=== PATIENT | male | born 1975 | race Caucasian/White ===

== ENCOUNTER 2021-08-19 20:52 | Inpatient (IN) | payer OTHER, SELFPAY ==
--- NOTE | 2021-08-16 19:35 | NUR ---
RECEIVED PT FROM AM NURSE FOR CONTINUITY OF CARE.PATIENT STABLE,NO DISTRESS NOTED
[~2021-08-19] VITALS: Ht 170.2 cm; Wt 68.5 kg
[2021-08-19 21:05] VITALS: BP 132/42
[2021-08-19] MEDS ORDERED: ACETAMINOPHEN 325 MG TAB PO ONE (21:15)
--- NOTE | 2021-08-19 21:30 | NUR ---
PT AT BEDSIDE
[2021-08-19] MEDS ORDERED: NACL 0.9% 1,000 ML IV ONE (21:55)
--- NOTE | 2021-08-19 22:20 | NUR ---
PT PROVIDED WATER AND ICE CHIPS. PT RECIEVED WELL. NO EMESIS
[2021-08-19] MEDS ORDERED: NACL 0.9% 2,000 ML IV ONE (22:30)
[2021-08-19] MEDS ORDERED: VANCOMYCIN 1,000 MG in DEXTROSE 5% 250 ML IV ONE (22:30)
[2021-08-19] MEDS ORDERED: PIPERACILLIN/TAZOBACTAM 3.375 GM in DEXTROSE 5% 50 ML IV ONE (22:30)
[2021-08-19 22:42] LABS: HEMATOCRIT 28.5 % (36-48); HEMOGLOBIN 9.4 g/dL (12.0-16.0); MEAN CORPUSCULAR HEMOGLOBIN 26 pg (27-31); MEAN CORPUSCULAR HGB CONC 33 g/dL (33-37); MEAN CORPUSCULAR VOLUME 78.3 fL (80-94); PLATELET COUNT (AUTO) 187 K/uL (140-450); RED BLOOD CELL COUNT(AUTO) 3.64 MIL/uL (4.20-6.1); RED CELL DISTRIBUTION WIDTH 15.7 % (11.6-13.7); WHITE BLOOD COUNT (AUTO) 3.9 K/uL (4.8-10.8)
[2021-08-19] MEDS ORDERED: VANCOMYCIN 1,000 MG VIAL ONE (22:43)
[2021-08-19] MEDS ORDERED: PIPERACILLIN/TAZOBACTAM 3.375 GM VIAL IV ONE (22:43)
[2021-08-19 22:57] LABS: ANION GAP 12.1 (8-16); CARBON DIOXIDE 25.3 mmol/L (21-32); CREATININE 1.4 mg/dL (0.6-1.3); POTASSIUM 3.4 mmol/L (3.5-5.1)
--- NOTE | 2021-08-19 23:09 | NUR ---
45 YO IDENTIFIES MALE/ HE/ HIM. PT BIBA FOR HEART PALPITATIONS TODAY AND FEVER X2 DAYS . PT STATES SHE HAD STOMACH SURGERY IN JUN TO REMOVE HALF OF STOMACH R/T STOAMCH CANCER . DENIES DIARRHHEA BUT HAS NAUSEA / VOMITING X2 DAYS.; SKIN IS PINK/WARM/DIAPOHORETIC; AAOX4 WITH EVEN AND STEADY GAIT; LUNGS CLEAR BL; HR TACHYCARDIC; PT STATES FEVER, CP, SOB, PT PUT ON MONITOR AND EKG PERFORMED, TYLENOL GIVEN AT TRIAGE; PT STTES THAT HR HAS AWAYS BEEN FAST AT REST. PATIENT STATES PAIN OF 5/10 AT THIS TIME; PATIENT POSITIONED FOR COMFORT; HOB ELEVATED; BEDRAILS UP X2; BED DOWN. ER MD MADE AWARE OF PT STATUS. PMH: STOMACH CANCER RX: PAST CHEMOTHERAPY; NUTRITIONAL PUMP
[2021-08-19 23:12] LABS: LYMPHOCYTES % (MANUAL) 13 % (20-46); MONOCYTES % (MANUAL) 0 % (5-12)
[2021-08-19 23:15] LABS: ALBUMIN 2.8 g/dL (3.4-5.0); BILIRUBIN,DIRECT 0.1 mg/dL (0.0-0.3); TOTAL BILIRUBIN 0.4 mg/dL (0.0-1.0)
[2021-08-20] VITALS (15 sets, daily range): BP systolic 89–121; BP diastolic 42–72
--- NOTE | 2021-08-20 | NUR ---
pt provided with blanket. pt needs met at this time. will continue to monitor
--- NOTE | 2021-08-20 01:40 | NUR ---
provided pt with table and pillow
[2021-08-20 01:53] LABS: APPEARANCE,URINE CLEAR (CLEAR); BILIRUBIN,URINE NEGATIVE (NEGATIVE); BLOOD, URINE NEGATIVE (NEGATIVE); COLOR,URINE DARK YELLOW (YELLOW); LEUKOCYTE ESTERASE ,URINE NEGATIVE (NEGATIVE); NITRITE, URINE NEGATIVE (NEGATIVE); PH,URINE 5.5 (5.0-9.0); UGLUCOSE NEGATIVE (NEGATIVE)
[2021-08-20 02:09] LABS: RBC,URINE 0-5 /HPF (0-5); WBC,URINE 0-5 /HPF (0-5)
[2021-08-20] MEDS ORDERED: NOREPINEPHRINE 4 MG in DEXTROSE 5% 250 ML IV ONE (02:30)
[2021-08-20] MEDS ORDERED: LEVOFLOXACIN 500 MG/D5W PREMIX 100 ML IV ONE ×2 (02:30→04:46)
--- NOTE | 2021-08-20 02:38 | NUR ---
[facility] CALLED FOR ADMISSION
[2021-08-20] MEDS ORDERED: ACETAMINOPHEN EXTRA STRENGTH 500 MG TAB PO ONE (02:45)
[2021-08-20] MEDS ORDERED: NACL 0.9% 1,000 ML IV SCH ×2 (02:50→04:50)
[2021-08-20] MEDS ORDERED: VANCOMYCIN PER PHARMACY MC PRN ×2 (03:00→04:55)
--- NOTE | 2021-08-20 03:03 | NUR ---
Pt reconnected her personal TPN into her port. Per Dr. Worrell's order, pt instructed to stop TPN at this time to r/o infection. pt acknowledge instruction and Primary nurse, Paige made aware.
--- NOTE | 2021-08-20 03:06 | NUR ---
gave shantal swabs to neto
[2021-08-20] MEDS ORDERED: NOREPINEPHRINE 4 MG/4 ML VIAL IV ONE (03:58)
[2021-08-20] MEDS ORDERED: PIPERACILLIN/TAZOBACTAM 3.375 GM in DEXTROSE 5% 50 ML IV SCH ×2 (05:00)
--- NOTE | 2021-08-20 05:20 | NUR ---
AT BEDSIDE PERFORMING CENTRAL LINE AT BEDSIDE
--- NOTE | 2021-08-20 05:34 | NUR ---
DONE FINISHED CENTRAL LINE. PT TOLERATED WELL. PT AT BEDSIDE. ALL NEEDS MET AT THIS TIME
[2021-08-20] MEDS: PIPERACILLIN/TAZOBACTAM 2.25 GM in DEXTROSE 5% 50 ML IV SCH ×4 (06:00→23:41)
--- NOTE | 2021-08-20 06:11 | NUR ---
Patient will be admitted to care of DR. LINDSEY. Admited to ICU. Will go to room 3 . Belongings list completed. Report to KYLE JACK.
--- NOTE | 2021-08-20 06:30 | NUR ---
PT ARRIVED TO ICU BED 3 TRANSFERRED FROM ED VIA GURNEY. PT IN STABLE CONDITION IN NO ACUTE DISTRESS BREATHING EVEN AND UNLABORED ON RA O2 SAT 99%. AOX4. RIGHT FEMORAL CENTRAL LINE PRESENT, PER ED NURSE, CENTRAL LINE PLACED AT 0530 THIS MORNING, R AC 20 G, AND R HAND 20 G PRESENT. RUNNING LEVOPHED AT 8 MCG/MIN, CURRENT BP 93/70. RIGHT CHEST TPN PORT PRESENT. ALL SAFETY MEASURES IN PLACE, EDUCATED ON HOW TO USE CALL LIGHT. WILL CONTINUE TO MONITOR AND FOLLOW POC.
[2021-08-20] MEDS: NOREPINEPHRINE 4 MG in DEXTROSE 5% 250 ML IV PRN (07:00)
--- NOTE | 2021-08-20 07:04 | NUR ---
PATIENT HAS BEEN SCREENED AND CATEGORIZED HIGH NUTRITION RISK. PATIENT WILL BE SEEN WITHIN 1-2 DAYS OF ADMISSION. 08/20/21-08/21/21 TAMEKA FERRO MS, RDN
--- NOTE | 2021-08-20 07:20 | NUR ---
GAVE REPORT TO DAY SHIFT NURSE, ENDORSED CARE. PT IN NO ACUTE DISTRESS.
--- NOTE | 2021-08-20 07:30 | NUR ---
RECEIVED REPORT FROM COMMERCIAL BANKER. PT CAME IN WITH A CC OF FEVER, SOB, AND PALPITATIONS. ADMITTING DX OF SEPTIC SHOCK. HX OF STOMACH CA, SUBTOTAL GASTRECTOMY, TPN FOR 2 MONTHS. PT AOX4, ABLE TO MAKE NEEDS KNOWN. NO C/O PAIN, NO SOB ON ROOM AIR. LUNG SOUNDS CLEAR. BOWEL AND BLADDER CONTINENT. NPO AT THIS TIME. WITH LEFT FEMORAL CENTRAL LINE RUNNING LEVOPHED 8MCG/MIN AND NS 125ML/HR. WITH PERIPHERAL IV RAC 20G AND RH 20G ON SL. SKIN INTACT. SAFETY PRECAUTIONS IN PLACE. CALL LIGHT WITHIN REACH. PLAN OF CARE DISCUSSED
[2021-08-20] MEDS ORDERED: PIPERACILLIN/TAZOBACTAM 2.25 GM VIAL IV ONE (07:54)
[2021-08-20] MEDS: ENOXAPARIN 40 MG/0.4 ML SYR SUBQ SCH (08:11)
--- NOTE | 2021-08-20 08:30 | NUR ---
DUE ANTIBIOTICS GIVEN. PT REFUSED LOVENOX, PT AWARE OF RISKS AND BENEFITS
[2021-08-20] MEDS ORDERED: VANCOMYCIN 500 MG in DEXTROSE 5% 100 ML IV SCH (09:00)
--- NOTE | 2021-08-20 09:56 | NUR ---
(08/20/21) RD INITIAL ASSESSMENT COMPLETED PLEASE REFER TO NUTRITION ASSESSMENT UNDER CARE ACTIVITY FOR ESTIMATED NUTRITIONAL NEEDS. RD RECOMMENDATIONS: 1. CONTINUE NPO MEDICALLY APPROPRIATE 2. CONSIDER INITIATING REGULAR DIET ONCE PT IS MEDICALLY APPROPRIATE TO START ORAL DIET 3. IF PT IS TO START TPN, CONSIDER TPN D25%, AA5% TO RUN AT 65 ML/HR X 24 HRS. THIS WILL PROVIDE 1560 ML TOTAL VOLUME, 1638 KCAL, AND 78 GM PROTEIN TO MEET 77% EST KCAL NEEDS AND 100% LOWER-END PROTEIN NEEDS. GIR = 3.81 GM CHO/KG/MIN. 4. RD WILL F/U 2-3 DAYS; HIGH RISK. TAMEKA FERRO, MS, RDN
[2021-08-20 10:15] LABS: ANION GAP 12.2 (8-16); CARBON DIOXIDE 24.6 mmol/L (21-32); CREATININE 1.1 mg/dL (0.6-1.3); POTASSIUM 4.8 mmol/L (3.5-5.1)
[2021-08-20] MEDS ORDERED: DEXT 5% / NACL 0.9% 500 ML IV SCH (10:40)
[2021-08-20] MEDS: DEXT 5% /NACL 0.9% 1,000 ML IV SCH ×2 (11:37→23:41)
--- NOTE | 2021-08-20 11:40 | NUR ---
PT RESTING IN BED, NO APPARENT DISTRESS. SEEN AND EXAMINED BY DR FERGUSON
--- NOTE | 2021-08-20 14:00 | NUR ---
PT RESTING IN BED, FAMILY AT BEDSIDE
--- NOTE | 2021-08-20 16:30 | NUR ---
SEEN AND EXAMINED BY DR WAGGONER, NO NEW ORDERS
--- NOTE | 2021-08-20 16:48 | NUR ---
FOLLOWED UP WITH DR PUGH REGARDING SURGICAL CONSULT. DR PUGH AWARE OF CONSULT
--- NOTE | 2021-08-20 18:00 | NUR ---
PT RESTING IN BED WITH FAMILY AT BEDSIDE
--- NOTE | 2021-08-20 19:15 | NUR ---
ASSUMED CARE OF PT.INITIAL ASSESSMENT COMPLETED.PT AWAKE ALERT AND ORIENTED X4.SR NOTED ON MONITOR.ON ROOM AIR.DENIES SOB.PT MAINTAINED ON NPO.W/MEDIPORT TO RT CHEST INTACT.CLAMPED.W/TLC TO RT FEMORAL INTACT,GOOD BLOOD RETURN TO ALL 3 PORTS INFUSING LEVOPHED 4MG IN 250ML D5W AT 1 MCG/MIN AND ORDERED IVF D5NS AT 100ML/HR.PT MAINTAINED ON NPO AT THIS TIME.PT ABLE TO VOID FREELY.MOVES ALL EXTREMITIES, ABLE TO STAND/AMBULATE W/STEADY GAIT.DENIES PAIN AT THIS TIME.SKIN INTACT.CALL LIGHT WITHIN REACH.FALL PRECAUTION IN PLACE.BED IN LOWEST POSITION
[2021-08-20] MEDS: FAMOTIDINE 20 MG/2 ML VIAL IV SCH (20:14)
--- NOTE | 2021-08-20 20:15 | NUR ---
PT AWAKE; TRIED TO DC LEVOPHED BUT BP WENT DOWN TO 85/45.WILL CONTINUE TO CLOSELY MONITOR PT
[2021-08-20] MEDS ORDERED: VANCOMYCIN 750 MG in DEXTROSE 5% 250 ML IV SCH (21:00)
--- NOTE | 2021-08-20 21:00 | NUR ---
ALL DUE MEDS ADMINISTERED.DENIES PAIN.SELF TURN.
--- NOTE | 2021-08-20 23:10 | NUR ---
PT UP TO COMMODE.NO BM NOTED AT THIS TIME.VOIDS FREELY.
[2021-08-21] VITALS (24 sets, daily range): BP systolic 95–117; BP diastolic 54–76
--- NOTE | 2021-08-21 00:59 | NUR ---
PT ASLEEP;NOT IN ANY DISTRESS.NO S/SX OF PAIN NOTED.
--- NOTE | 2021-08-21 02:30 | NUR ---
PT APPEARS ASLEEP;NO SOB NOTED.NOT IN ANY DISTRESS.STILL ON LEVOPHED DRIP PER PROTOCOL
[2021-08-21] MEDS ORDERED: NOREPINEPHRINE 4 MG/4 ML VIAL IV ONE (02:59)
[2021-08-21] MEDS: NOREPINEPHRINE 4 MG in DEXTROSE 5% 250 ML IV PRN ×2 (03:13→03:49)
--- NOTE | 2021-08-21 04:00 | NUR ---
PT AWAKE; OFFERED MORNING CARE, PT REFUSED.ORAL CARE DONE DENIES PAIN
[2021-08-21 04:57] LABS: ALBUMIN 2.3 g/dL (3.4-5.0); ANION GAP 11.8 (8-16); CARBON DIOXIDE 23.9 mmol/L (21-32); CREATININE 0.9 mg/dL (0.6-1.3); POTASSIUM 3.7 mmol/L (3.5-5.1); TOTAL BILIRUBIN 0.3 mg/dL (0.0-1.0)
[2021-08-21] MEDS: PIPERACILLIN/TAZOBACTAM 2.25 GM in DEXTROSE 5% 50 ML IV SCH ×3 (05:37→17:35)
[2021-08-21 05:54] LABS: BASOPHILS % (AUTO) 0.5 % (0.0-2.0); EOSINOPHILS % (AUTO) 0.1 % (0.0-4.0); HEMOGLOBIN 8.3 g/dL (12.0-16.0); LYMPHOCYTES # (AUTO) 1.5 K/uL (2.5-16.5); LYMPHOCYTES % (AUTO) 22.5 % (20.5-51.1); MEAN CORPUSCULAR HEMOGLOBIN 26 pg (27-31); MEAN CORPUSCULAR HGB CONC 33 g/dL (33-37); MEAN CORPUSCULAR VOLUME 77.9 fL (80-94); MONOCYTES # (AUTO) 0.5 K/uL (0.8-1.0); MONOCYTES % (AUTO) 7.4 % (1.7-9.3); NEUTROPHILS # (AUTO) 4.7 K/uL (1.8-7.7); NEUTROPHILS % (AUTO) 69.5 % (42.2-75.2); PLATELET COUNT (AUTO) 149 K/uL (140-450); RED BLOOD CELL COUNT(AUTO) 3.21 MIL/uL (4.20-6.1); RED CELL DISTRIBUTION WIDTH 15.9 % (11.6-13.7); WHITE BLOOD COUNT (AUTO) 6.8 K/uL (4.8-10.8)
--- NOTE | 2021-08-21 07:30 | NUR ---
RECEIVED REPORT FROM STIFF LEG DERRICK OPERATOR. PT AOX4, ABLE TO MAKE NEEDS KNOWN. NO C/O PAIN, NO SOB ON ROOM AIR. LUNG SOUNDS CLEAR. BOWEL AND BLADDER CONTINENT. NPO AT THIS TIME. WITH LEFT FEMORAL CENTRAL LINE RUNNING LEVOPHED 2MCG/MIN AND D5NS 100ML/HR. SKIN INTACT. SAFETY PRECAUTIONS IN PLACE. CALL LIGHT WITHIN REACH. PLAN OF CARE DISCUSSED
[2021-08-21] MEDS: DEXT 5% /NACL 0.9% 1,000 ML IV SCH ×2 (07:47→16:34)
--- NOTE | 2021-08-21 09:30 | NUR ---
DUE MEDS GIVEN, TOLERATED WELL
[2021-08-21] MEDS: VANCOMYCIN 1,000 MG in DEXTROSE 5% 250 ML IV SCH ×2 (09:31→20:38)
[2021-08-21] MEDS: FAMOTIDINE 20 MG/2 ML VIAL IV SCH ×2 (09:31→20:46)
[2021-08-21] MEDS: ENOXAPARIN 40 MG/0.4 ML SYR SUBQ SCH (09:32)
[2021-08-21] MEDS ORDERED: POTASSIUM CHLORIDE 10 MEQ TABER PO SCH (09:35)
[2021-08-21] MEDS ORDERED: MAG SULF 2000 MG/WATER PREMIX 50 ML IV SCH (09:35)
--- NOTE | 2021-08-21 10:30 | NUR ---
SBP>100, MAP>65. LEVOPHED TITRATED OFF PER PARAMETERS
--- NOTE | 2021-08-21 11:50 | NUR ---
PER DR FERGUSON, MAY DOWNGRADE TO TELE AFTER 12H OFF LEVOPHED
--- NOTE | 2021-08-21 14:20 | NUR ---
PT RESTING IN BED, NO APPARENT DISTRESS
--- NOTE | 2021-08-21 17:38 | NUR ---
PT AWAKE, FAMILY AT BEDSIDE, NEEDS MET AT THIS TIME
--- NOTE | 2021-08-21 19:30 | NUR ---
RECEIVED REPORT FROM SEFERINO LEMUS AT BEDSIDE FOR CONTINUITY CARE. PT SITTING UP AT THE EDGE OF BED SHE IS ON ROOM AIR AND IS AWAKE AND AOX4. PT "HE" IS AWAKE AND ALERT X4 AND IS ON ROOM AIR. PT HAS MEDIPORT ON THE RIGHT CHEST. HE ALSO HAS A RIGHT FEMORAL TRIPLE LUMEN RUNNING D5N/S AT 100%. HE HAS A URINAL AND BEDSIDE COMMODE AT BEDSIDE. V/S FOLLOWS; P 94 R 15 B/P 101/69 02 100%. PT HAS NO C/O AT THIS TIME. ALL UNIVERSAL FALLS PRECAUTIONS IN PLACE.
--- NOTE | 2021-08-21 21:30 | NUR ---
LAB DRAW AT BEDSIDE FOR VANCOMYCIN TROUGH, LAST TROUGH WAS 8. VANCOMYCIN HUNG AND RUNNING AT 165 ORDERED. PT ALSO GIVEN IVP PEPCID VIA CENTRAL FEMORAL LINE. EDUCATION REGARDING MEDICATION PROVIDED AT BEDSIDE, INCLUDING MEDICATION SIDE EFFECTS, PT VERBALIZED UNDERSTANDING. PT WAS ALSO PROVIDED WITH CLEAN LINENS AND WAS ABLE TO PREFORM ORAL CARE INDEPENDENTLY. HE HAS NO C/O OF PAIN OR SOB. TEMP 98.1. B/P RETAKEN 99/65. WILL CONTINUE TO MONITOR B/P. ALL UNIVERSAL FALLS PRECAUTIONS IN PLACE.
[2021-08-22] VITALS (15 sets, daily range): BP systolic 88–119; BP diastolic 45–73
[2021-08-22] MEDS: PIPERACILLIN/TAZOBACTAM 2.25 GM in DEXTROSE 5% 50 ML IV SCH ×5 (00:22→23:25)
--- NOTE | 2021-08-22 00:22 | NUR ---
HUNG PT ZOSYN RUNNING AT 100MLS/HR ORDERED. PT SAID HE WAS HUNGRY AND WAS GIVEN REQUESTED SANDWICH. URINAL DUMPED IT WAS 750 OF LIGHT URINE. ALL UNIVERSAL FALLS PRECAUTIONS IN PLACE.
[2021-08-22] MEDS: DEXT 5% /NACL 0.9% 1,000 ML IV SCH ×2 (02:00→13:10)
--- NOTE | 2021-08-22 02:30 | NUR ---
NEW BAG OF D5N/S HUNG AND RUNNING ORDERED. PT SITTING UP IN BED AWAKE AND WATCHING TV. NO C/O VOICED. ALL UNIVERSAL FALLS PRECAUTIONS IN PLACE.
--- NOTE | 2021-08-22 05:00 | NUR ---
LAB DRAWS AT BEDSIDE, PT HAS NO C/O VOICED. D5NS RUNNING AT 100MLS/HR ORDERED.
[2021-08-22 05:27] LABS: BASOPHILS % (AUTO) 0.5 % (0.0-2.0); EOSINOPHILS # (AUTO) 0.1 K/uL (0-0.4); EOSINOPHILS % (AUTO) 1.2 % (0.0-4.0); HEMATOCRIT 24.7 % (36-48); HEMOGLOBIN 8.2 g/dL (12.0-16.0); LYMPHOCYTES # (AUTO) 1.5 K/uL (2.5-16.5); LYMPHOCYTES % (AUTO) 34.9 % (20.5-51.1); MEAN CORPUSCULAR HEMOGLOBIN 26 pg (27-31); MEAN CORPUSCULAR HGB CONC 33 g/dL (33-37); MEAN CORPUSCULAR VOLUME 77.6 fL (80-94); MONOCYTES # (AUTO) 0.4 K/uL (0.8-1.0); MONOCYTES % (AUTO) 10.2 % (1.7-9.3); NEUTROPHILS # (AUTO) 2.2 K/uL (1.8-7.7); NEUTROPHILS % (AUTO) 53.2 % (42.2-75.2); PLATELET COUNT (AUTO) 154 K/uL (140-450); RED BLOOD CELL COUNT(AUTO) 3.19 MIL/uL (4.20-6.1); RED CELL DISTRIBUTION WIDTH 15.8 % (11.6-13.7); WHITE BLOOD COUNT (AUTO) 4.2 K/uL (4.8-10.8)
[2021-08-22 05:45] LABS: ANION GAP 9.7 (8-16); CARBON DIOXIDE 24.9 mmol/L (21-32); CREATININE 0.8 mg/dL (0.6-1.3); POTASSIUM 3.6 mmol/L (3.5-5.1)
--- NOTE | 2021-08-22 06:00 | NUR ---
HARRY HUNG AND RUNNING ORDERED. PT HAS NO C/O VOICED SBP OVER 90. ALL ORDERED PRECAUTIONS IN PLACE. ALL UNIVERSAL FALLS PRECAUTIONS IN PLACE.
--- NOTE | 2021-08-22 07:25 | NUR ---
RECEIVED BEDSIDE REPORT FROM REESE HOBSON RN FOR CONTINUITY OF CARE. PT AAOX4, PERRLA. ON ROOM AIR. SR ON THE MONITOR. BOWEL SOUNDS ACTIVE THROUGHOUT. CONTINENT OF BOWWEL AND BLADDER. COMMODE AT BEDSIDE. ACTIVE ROM BUE BLE. SKIN INTACT. RU CHEST MEDIPORT IN PLACE. R FEM TLC CENTRAL LINE, PATENT INTACT, INFUSING D5NS AT 100 ML/HR. STANDARD PRECAUTION IN PLACE. SAFETY PRECAUTIONS MET. CALL LIGHT WITHIN REACH. INITIAL ASSESSMENT COMPLETE, WILL CONTINUE TO CLOSELY MONITOR.
--- NOTE | 2021-08-22 08:30 | NUR ---
FINISHED 50% BREAKFAST. TOLERATED WELL. WILL CONTINUE TO CLOSELY MONITOR.
[2021-08-22] MEDS: ENOXAPARIN 40 MG/0.4 ML SYR SUBQ SCH (08:41)
[2021-08-22] MEDS: FAMOTIDINE 20 MG/2 ML VIAL IV SCH ×2 (08:42→20:20)
[2021-08-22] MEDS: VANCOMYCIN 1,000 MG in DEXTROSE 5% 250 ML IV SCH ×2 (08:43→20:20)
--- NOTE | 2021-08-22 09:00 | NUR ---
DUE MEDS ADMINISTERED PER MD ORDER. NADR. WILL CONTINUE TO MONITOR.
--- NOTE | 2021-08-22 12:27 | NUR ---
DC PLANNIN YRS OLD PATIENT WAS ADMITTED FROM HOME WITH A DX OF SEPSIS AND FEVER . PATIENT HAS A HX OF STOMACH CANCER ,HAD A SUBTOTAL GASTRECTOMY 06/28/21 AT [facility]. CXR SHOWED NO ACUTE CARDIOPULMONARY DISEASE. RAPID COVID TEST NEGATIVE. ADMITTED IN ICU FOR LEVOPHED DRIP ADMINISTERED IVF, IV ABX ZOSYN . CONSULTED WITH PULDAYAMI, ID AND SURGEON FOR MEDIPORT INFECTION. DC PLAN TO DOWN GRADE TO TELE WHEN STABLE CM TO FOLLOW Addendum: 08/24/21 at 1140 by Karyn Olivas RN DC PLANNING: PER DR YOON ORDER TO REMOVE THE MEDIPORT DUE TO BLOOD CULTURE SHOWED GRAM NEGATIVE RODS. TEMP 99.0 B/C 18/4.9 CONTINUE MEROPENEM IV. NOTIFIED KYLE TOSCANO TO F/U WITH DR PUGH TO REMOVE THE MEDI PORT. DC PLAN TO GO HOME WHEN STABLE. CM TO FOLLOW Addendum: 08/26/21 at 1510 by Karyn Olivas RN DC PLANNING: BLOOD CULTURE WITH KLEBSIELLA AND CITROBACTER. AWAITING FOR DR HERNANDEZ AND ID DECISION FOR MEDI PORT REMOVAL. B/C .7 CONSULTED WITH NEPHROLOGY CM TO FOLLOW UP Addendum: 08/30/21 at 1436 by Karyn Olivas RN DC PLANNING: DR ZHAO GUSTAFSON (VULNERABILITY RESEARCHER) AND DR MORGAN DISCUSSED THE BUN AND CREATINE AND OK TO DC PATIENT HOME AND FOLLOW UP WITH VULNERABILITY RESEARCHER WITH IN 2 WEEKS. PATIENT STATED DOESN'T WANT TO REMOVE THE MEDI PORT WILL FOLLOW UP WITH DR HERNANDEZ (ONCOLOGIST) NEXT WEEK AND REFUSED ANY HOME HEALTH FOR MEDI PORT CARE. STABLE FOR DISCHARGE.
--- NOTE | 2021-08-22 13:45 | NUR ---
SEEN AND EXAMINED BY DR GUEVARA. RECEIVED DOWNGRADE ORDERS.
--- NOTE | 2021-08-22 14:12 | NUR ---
08/22/21 RD FOLLOW UP COMPLETED PLEASE REFER TO NUTRITION ASSESSMENT UNDER CARE ACTIVITY FOR ESTIMATED NUTRITIONAL NEEDS. 1. CONTINUE SOFT DIET TOLERATED 2. RECOMMEND ENSURE VANILLA BID PER RD PROTOCOL -WILL PROVIDE 700 KCAL AND 40 GM PROTEIN DAILY 3. RD WILL F/U 3-5 DAYS; MODERATE RISK (DOWNGRADED D/T PT TOLERATING SOLID FOODS WITH NO GI SYMPTOMS) DEDRICK LAU, RD
--- NOTE | 2021-08-22 15:00 | NUR ---
SEEN AND EXAMINED BY DR PUGH. ORDERED TO REMOVE R FEM CENTRAL LINE AND USE MEDIPORT.
--- NOTE | 2021-08-22 15:45 | NUR ---
[facility] PATENT, FLUSHES WELL. CENTRAL LINE REMOVED PER DR PUGH ORDERS.
[2021-08-22] MEDS: ACETAMINOPHEN 325 MG TAB PO PRN ×2 (17:00→21:24)
[2021-08-22] MEDS ORDERED: POTASSIUM CHLORIDE 10 MEQ TABER PO SCH (17:00)
--- NOTE | 2021-08-22 17:00 | NUR ---
PT COMPLAINS OF SHIVERING AND HEADACHE. MEDICATED WITH TYLENOL PER PRN ORDERS. ACCUCHECK 70. GAVE PO ORANGE JUICE. WILL CONTINUE TO CLOSELY MONITOR.
--- NOTE | 2021-08-22 17:30 | NUR ---
PT DENIES PAIN, NO MORE SHIVERING. PT RESTING COMFORTABLY IN THE BED. WILL CONTINUE TO CLOSELY MONITOR.
--- NOTE | 2021-08-22 19:03 | NUR ---
ENDORSED BEDSIDE REPORT TO BLAINE HOBSON RN FOR CONTINUITY OF CARE.
--- NOTE | 2021-08-22 19:30 | NUR ---
ASSUMED CARE OF PT.INITIAL ASSESSMENT COMPLETED.PT AWAKE ALERT AND ORIENTED X4,WATCHING TV.ST NOTED ON MONITOR.ON ROOM AIR.NO SOB NOTED.W/MEDIPORT TO RT CHEST INTACT CLAMPED.PT ON SOFT DIET.DENIES N/V.PT ABLE TO VOID FREELY.MOVES ALL EXTREMITIES, ABLE TO STAND/AMBULATE W/STEADY GAIT.DENIES PAIN AT THIS TIME.SKIN INTACT.CALL LIGHT WITHIN REACH.FALL PRECAUTION IN PLACE.BED IN LOWEST POSITION Addendum: 08/22/21 at 2129 by Gregoria Yadav RN PT WITH CLARK WILLIAMSER AND BLANKETS ON
--- NOTE | 2021-08-22 20:00 | NUR ---
TEMP CHECKED 102.1; CLARK HUGGER AND BLANKETS REMOVED.COOLING MEASURES RENDERED.UNABLE TO GIVE TYLENOL AT THIS TIME NOT DUE YET. PHONE CALL TO DR WAGGONER,INFECTIOUS DS ; AWAITING CALL BACK
--- NOTE | 2021-08-22 20:35 | NUR ---
PHONE CALL FROM DR WAGGONER,MADE AWARE OF PTS TEMP 102, ORDERED BLOOD CULTURE FROM [facility].TO CONTINUE SAME ANTIBIOTICS,VANCOMYCIN AND ZOSYN
--- NOTE | 2021-08-22 21:27 | NUR ---
HR 150'S, PT SHAKING, CHILLS NOTED.TEMP 103.3; CONTINUOUS COOLING MEASURES RENDERED,TYLENOL ADMINISTERED ORDERED.
--- NOTE | 2021-08-22 22:00 | NUR ---
STILL ON CONTINUOUS COOLING MEASURES,TEMP RECHECKED 101.4.DENIES PAIN
[2021-08-23] VITALS (7 sets, daily range): BP systolic 91–108; BP diastolic 45–69
--- NOTE | 2021-08-23 | NUR ---
DUE MEDS GIVEN.TEMP 100.4; CONTINUOUS COOLING MEASURES RENDERED
--- NOTE | 2021-08-23 02:34 | NUR ---
PT ASLEEP,EASILY AROUSABLE, TEMP RECHECKED 98.9.DENIES PAIN
--- NOTE | 2021-08-23 04:00 | NUR ---
TEMP CHECKED 99.5 ORAL.DENIES PAIN.SELF TURNS
[2021-08-23 05:22] LABS: BASOPHILS % (AUTO) 0.1 % (0.0-2.0); HEMATOCRIT 26.3 % (36-48); HEMOGLOBIN 8.6 g/dL (12.0-16.0); LYMPHOCYTES # (AUTO) 0.5 K/uL (2.5-16.5); LYMPHOCYTES % (AUTO) 3.3 % (20.5-51.1); MEAN CORPUSCULAR HEMOGLOBIN 25 pg (27-31); MEAN CORPUSCULAR HGB CONC 33 g/dL (33-37); MONOCYTES # (AUTO) 0.5 K/uL (0.8-1.0); MONOCYTES % (AUTO) 3.2 % (1.7-9.3); NEUTROPHILS # (AUTO) 13.2 K/uL (1.8-7.7); NEUTROPHILS % (AUTO) 93.4 % (42.2-75.2); PLATELET COUNT (AUTO) 177 K/uL (140-450); RED BLOOD CELL COUNT(AUTO) 3.42 MIL/uL (4.20-6.1); RED CELL DISTRIBUTION WIDTH 15.6 % (11.6-13.7); WHITE BLOOD COUNT (AUTO) 14.2 K/uL (4.8-10.8)
[2021-08-23] MEDS: PIPERACILLIN/TAZOBACTAM 2.25 GM in DEXTROSE 5% 50 ML IV SCH ×2 (05:32→11:34)
[2021-08-23 05:45] LABS: MAGNESIUM 1.3 mg/dL (1.8-2.4)
[2021-08-23 06:51] LABS: ANION GAP 12.2 (8-16); CARBON DIOXIDE 23.1 mmol/L (21-32); CREATININE 1.7 mg/dL (0.6-1.3); POTASSIUM 4.3 mmol/L (3.5-5.1)
--- NOTE | 2021-08-23 07:30 | NUR ---
RECEIVED REPORT FROM CHRISTMAS TREE FARMER. PT AOX4, ABLE TO MAKE NEEDS KNOWN. NO C/O PAIN, NO SOB ON ROOM AIR. LUNG SOUNDS CLEAR. BOWEL AND BLADDER CONTINENT. WITH RIGHT UPPER CHEST MEDIPORT RUNNING NS AT TKO. SKIN INTACT. SAFETY PRECAUTIONS IN PLACE. CALL LIGHT WITHIN REACH. PLAN OF CARE DISCUSSED
[2021-08-23] MEDS: FAMOTIDINE 20 MG/2 ML VIAL IV SCH ×2 (08:21→20:40)
[2021-08-23] MEDS: VANCOMYCIN 1,000 MG in DEXTROSE 5% 250 ML IV SCH (08:21)
[2021-08-23] MEDS: ACETAMINOPHEN 325 MG TAB PO PRN (08:22)
[2021-08-23] MEDS: ENOXAPARIN 40 MG/0.4 ML SYR SUBQ SCH (08:22)
--- NOTE | 2021-08-23 08:22 | NUR ---
DUE MEDS GIVEN TOLERATED WELL. TEMP 100.0, TYLENOL GIVEN
--- NOTE | 2021-08-23 09:19 | NUR ---
RECEIVED REPORT FROM INFORMATICS COORDINATOR RN. JENNIFER. NAD NOTED. PT RESTING COMFORTABLY IN BED. VANCO RUNNING THROUGH [facility]. PT AWARE OF POC. DR. PUGH AT BEDSIDE.
[2021-08-23] MEDS ORDERED: MAG SULF 2000 MG/WATER PREMIX 50 ML IV SCH (13:00)
--- NOTE | 2021-08-23 13:38 | NUR ---
PT'S MAGNESIUM LVL 1.3, GIVEN MAG SULFATE VIA IV PER ORDER.
--- NOTE | 2021-08-23 14:14 | NUR ---
PT RECEIVED [facility] CENTRAL LINE DRESSING CHANGE BY GRANITE POLISHER MACHINE. PT TOLERATED. PT RECEIVING MAGNESIUM SULFATE VIA PORT.
--- NOTE | 2021-08-23 14:19 | NUR ---
ID AWARE OF PT'S BC PRELIM RESULTS. PER MD HE WILL REVIEW ORDERS.
--- NOTE | 2021-08-23 16:00 | NUR ---
DC PLANNING PATIENT IS A 45 YEAR OLD INDIVIDUAL ADMITTED ON 08/20/2021 TO [facility]/ED DUE TO INCREASED FEVER, PALPITATIONS, AND HEART RACING THAT STARTED ABOUT COUPLE DAYS AGO, PATIENT HAS HX. OF RECENT SURGERY AT [facility] (GASTRECTOMY) ON June. PATIENT ALSO HAS HX. OF STOMACH CANCER AND IN PROCESS OF CONTINUES TREATMENT. SW MET WITH PATIENT AND SIGNIFICANT OTHER LIT GOMEZ AT BEDSIDE TO DISCUSS AND GATHER PATIENT'S COLLATERAL INFORMATION. PATIENT REPORTED LIVING AT HOME WITH SIGNIFICANT OTHER AND A CHILD. PATIENT STATED HAVING PLENTY OF SUPPORT FROM FAMILY,AND LIT GOMEZ WHO IS HIS EMERGENCY CONTACT AND MEDICAL DECISION MAKER. PATIENT REPORTED NOT HAVING ADVANCE DIRECTIVES AND WAS INTERESTED ON GETTING A.D. INFORMATION PACKET PROVIDED BY [employer] AT THE TIME OF VISIT. PATIENT REPORTED BEEN ACTIVE AND INDEPENDENT AT HOME AND NOT HAVING ANY DME AT HOME. PATIENT STATED NOT HAVING ANY ISSUES WITH GETTING OR TAKING ANY MEDICATIONS FROM [facility] NEAR THEIR HOME. SW EXPLAINED TO PATIENT THE NEED TO FOLLOW UP WITH AN APPOINTMENT WITH PCP WITHIN 5-7 DAYS AFTER DC FROM [facility]. PATIENT AGREED HOWEVER; STATED WANTING TO MAKE HIS APPOINTMENT AND DECLINED FOR SW TO DO AN APPOINTMENT FOR PATIENT. PATIENT STATED "NO I'LL MAKE MY APPOINTMENT" PATIENT STATED THAT SIGNIFICANT OTHER OR MOTHER WILL BE ASSISTING WITH TRANSPORTATION BACK HOME WHEN PATIENT IS READY FOR DISCHARGE FROM [facility]. SW WILL FOLLOW UP WITH PATIENT NEEDED.
--- NOTE | 2021-08-23 19:03 | NUR ---
WILL ENDORSE CARE TO CRYSTAL LAPPER RN.
--- NOTE | 2021-08-23 19:10 | NUR ---
RECEIVED ENDORSEMENT FROM AM NURSE. PATIENT IS RESTING COMFORTABLY IN BED. NO S/S OF RESPIRATORY DISTRESS. RESPIRATION EVEN UNLABORED. SAFETY MEASURES IN PLACE. NO COMPLAINTS OF PAIN. IVF NS INFUSING AT TKO. CALL LIGHT WITHIN REACH. WILL CONTINUE TO MONITOR.
[2021-08-23] MEDS: MEROPENEM 1,000 MG in NACL 0.9% 50 ML IV SCH (20:40)
--- NOTE | 2021-08-23 20:40 | NUR ---
SCHEDULED MEDICATIONS DUE ADMINISTERED.
[2021-08-24] VITALS: BP 105/64
--- NOTE | 2021-08-24 01:30 | NUR ---
ROUNDED PATIENT, PT IS SLEEPING. NO DISTRESS NOTED. CALL LIGHT WITHIN REACH.
[2021-08-24 04:00] VITALS: BP 101/65
[2021-08-24] MEDS: MEROPENEM 1,000 MG in NACL 0.9% 50 ML IV SCH (04:33)
[2021-08-24 05:42] LABS: MAGNESIUM 2.4 mg/dL (1.8-2.4); PHOSPHORUS 3.4 mg/dL (2.5-4.9)
[2021-08-24 05:49] LABS: ANION GAP 13.7 (8-16); POTASSIUM 4.7 mmol/L (3.5-5.1)
[2021-08-24 05:53] LABS: CREATININE 4.9 mg/dL (0.6-1.3)
--- NOTE | 2021-08-24 07:12 | NUR ---
ENDORSED PATIENT TO AM NURSE FOR CONTINUITY OF CARE. PT IS STABLE. NO FEVER.
[2021-08-24 08:00] LABS: BASOPHILS % (AUTO) 0.4 % (0.0-2.0); EOSINOPHILS % (AUTO) 0.5 % (0.0-4.0); HEMATOCRIT 27.6 % (36-52); HEMOGLOBIN 9.1 g/dL (12.0-18.0); LYMPHOCYTES # (AUTO) 1.2 K/uL (2.0-11.5); LYMPHOCYTES % (AUTO) 11.9 % (20.5-51.1); MEAN CORPUSCULAR HEMOGLOBIN 25 pg (27-31); MEAN CORPUSCULAR HGB CONC 33 g/dL (33-37); MONOCYTES # (AUTO) 0.9 K/uL (0.8-1.0); NEUTROPHILS # (AUTO) 8.1 K/uL (1.8-7.7); NEUTROPHILS % (AUTO) 78.2 % (42.2-75.2); PLATELET COUNT (AUTO) 175 K/uL (140-450); RED BLOOD CELL COUNT(AUTO) 3.58 MIL/uL (4.20-6.10); RED CELL DISTRIBUTION WIDTH 16.3 % (11.6-13.7); WHITE BLOOD COUNT (AUTO) 10.4 K/uL (4.8-10.8)
[2021-08-24 08:14] VITALS: BP 108/66
[2021-08-24] MEDS: FAMOTIDINE 20 MG/2 ML VIAL IV SCH (09:13)
[2021-08-24] MEDS: ENOXAPARIN 40 MG/0.4 ML SYR SUBQ SCH (09:13)
--- NOTE | 2021-08-24 09:28 | NUR ---
RECEIVED FROM CHEMICAL RESEARCH WORKER RN, PT IN STABLE CONDITION, VSS, SLEEPING, NAD NOTED. WILL CONTINUE TO MONITOR,
[2021-08-24] MEDS ORDERED: RENAL DOSING PER PHARMACY MC PRN (09:55)
[2021-08-24 12:00] VITALS: BP 104/67
--- NOTE | 2021-08-24 12:11 | NUR ---
PER DR. PUGH, PUT PT NPO FOR POSSIBLE REMOVAL OF PORT A CATH TONIGHT. ORDER PLACED.
[2021-08-24] MEDS ORDERED: FAMOTIDINE 20 MG/2 ML VIAL IV SCH (14:30)
[2021-08-24 16:00] VITALS: BP 105/64
[2021-08-24] MEDS: MEROPENEM 500 MG in NACL 0.9% 50 ML IV SCH (16:53)
--- NOTE | 2021-08-24 17:33 | NUR ---
PER DR. GUEVARA, DC ORDER TO REMOVE PORT A CATH. WANTS ONC DOCTOR TO EVALUATE PT FIRST BEFORE REMOVAL. OH AWARE. PT RESUMED ON PREVIOUS DIET.
--- NOTE | 2021-08-24 19:25 | NUR ---
RECEIVED REPORT FROM AM NURSE. PATIENT IS AAOX4 SITTING ON THE BEDSIDE CHAIR. ON ROOM AIR. NO SOB. BREATHING REGULAR UNLABORED. SAFETY MEASURES IN PLACE. CALL LIGHT WITHIN REACH. WILL CONTINUE TO MONITOR.
[2021-08-24 20:00] VITALS: BP 112/69
[2021-08-25] VITALS: BP 106/65
[2021-08-25 04:00] VITALS: BP 98/54
[2021-08-25] MEDS: MEROPENEM 500 MG in NACL 0.9% 50 ML IV SCH ×2 (04:25→16:07)
--- NOTE | 2021-08-25 04:25 | NUR ---
SCHEDULED IV ABX ADMINISTERED ORDERED.
[2021-08-25 06:05] LABS: BASOPHILS # (AUTO) 0.1 K/uL (0.00-0.22); BASOPHILS % (AUTO) 0.7 % (0.0-2.0); EOSINOPHILS % (AUTO) 0.4 % (0.0-4.0); HEMATOCRIT 26.7 % (36-52); HEMOGLOBIN 8.7 g/dL (12.0-18.0); LYMPHOCYTES # (AUTO) 1.4 K/uL (2.0-11.5); LYMPHOCYTES % (AUTO) 14.8 % (20.5-51.1); MEAN CORPUSCULAR HEMOGLOBIN 25 pg (27-31); MEAN CORPUSCULAR HGB CONC 33 g/dL (33-37); MEAN CORPUSCULAR VOLUME 77.7 fL (80-94); MONOCYTES # (AUTO) 0.9 K/uL (0.8-1.0); MONOCYTES % (AUTO) 8.8 % (1.7-9.3); NEUTROPHILS # (AUTO) 7.4 K/uL (1.8-7.7); NEUTROPHILS % (AUTO) 75.3 % (42.2-75.2); PLATELET COUNT (AUTO) 190 K/uL (140-450); RED BLOOD CELL COUNT(AUTO) 3.43 MIL/uL (4.20-6.10); RED CELL DISTRIBUTION WIDTH 16.1 % (11.6-13.7); WHITE BLOOD COUNT (AUTO) 9.8 K/uL (4.8-10.8)
[2021-08-25 06:09] LABS: MAGNESIUM 2.5 mg/dL (1.8-2.4)
[2021-08-25 06:11] LABS: ANION GAP 13.9 (8-16); CARBON DIOXIDE 24.4 mmol/L (21-32); POTASSIUM 4.3 mmol/L (3.5-5.1)
[2021-08-25 06:16] LABS: CREATININE 7.2 mg/dL (0.6-1.3)
--- NOTE | 2021-08-25 07:20 | NUR ---
ENDORSED PATIENT TO AM NURSE FOR CONTINUITY OF CARE. PT IS STABLE.
--- NOTE | 2021-08-25 07:21 | NUR ---
RECEIVED BEDSIDE REPORT FROM SPRAYER AUTOMATIC SPRAY MACHINE NURSE FOR CONTINUITY OF CARE. PT IS RESTING. BREATHING IS EVEN AND UNLABORED. NO SIGNS OF DISTRESS NOTED. NO PAIN NOTED. FLUIDS ARE TKO. HAS RIGHT UPPER CHEST MEDIPORT TO REMOVE ONCE DR HERNANDEZ SEES PT. PT IS STABLE.
[2021-08-25 08:00] VITALS: BP 106/60
[2021-08-25] MEDS ORDERED: ENOXAPARIN 30 MG/0.3 ML SYR SUBQ SCH (09:00)
[2021-08-25] MEDS: FAMOTIDINE 20 MG/2 ML VIAL IV SCH (09:17)
--- NOTE | 2021-08-25 11:03 | NUR ---
PT STATES HE HAS LOST APPETITE FOR 3 DAYS NOW. PT ASKING IF THEY CAN GIVE MORE IV FLUIDS. PT IS RESTING. BREATHING IS EVEN AND UNLABORED. NO SIGNS OF DISTRESS NOTED. NO PAIN NOTED. FLUIDS ARE TKO. PT ASKING IF THEY CAN GIVE MORE IV FLUIDS. HAS RIGHT UPPER CHEST MEDIPORT TO REMOVE ONCE DR HERNANDEZ SEES PT. PT IS STABLE.
[2021-08-25 12:00] VITALS: BP 105/72
[2021-08-25] MEDS: NACL 0.9% 1,000 ML IV SCH (12:12)
--- NOTE | 2021-08-25 15:58 | NUR ---
DR FERGUSON ORDERED BLOOD CULTURE AND STATED THAT IT IS OKAY TO DE-ACCESS MEDIPORT SINCE PT ALREADY HAS PIV. PT IS RESTING. BREATHING IS EVEN AND UNLABORED. NO SIGNS OF DISTRESS NOTED. NO PAIN NOTED. FLUIDS ARE NOW NS AT 75ML/HR. PT IS STABLE.
[2021-08-25 16:00] VITALS: BP 114/85
--- NOTE | 2021-08-25 18:00 | NUR ---
DR WAGGONER CHANGED THE ABX FROM MEROPENEM TO ROCEPHIN. SAID THAT DR PUGH CAN TAKE THE MEDIPORT OUT SO THAT IT DOES NOT CAUSE SEPSIS. ALSO TO CONSULT RENAL MD SINCE PT IS RAPHAEL. PT IS BREATHING EVEN AND UNLABORED. NO SIGNS OF DISTRESS NOTED. PT IS STABLE.
--- NOTE | 2021-08-25 19:40 | NUR ---
ENDORSED PT TO SEGMENT ASSEMBLER NURSE FOR CONTINUITY OF CARE. POC DISCUSSED.
[2021-08-25 20:00] VITALS: BP 107/74
--- NOTE | 2021-08-25 20:00 | NUR ---
VITAL SIGNS ARE WITHIN NORMAL LIMITS. DENIES ANY S/SX OF DISTRESS. PT OBSERVED SITTING IN BED TALKING WITH FAMILY MEMBER. ALL NEEDS MET. CALL LIGHT IS WITHIN REACH.
--- NOTE | 2021-08-25 22:39 | NUR ---
ROUNDS MADE. PT RESTING IN BED WATCHING TV. DENIES ANY DISTRESS. CALL LIGHT IS WITHIN REACH. WILL CONTINUE TO MONITOR.
[2021-08-25] MEDS: ACETAMINOPHEN 325 MG TAB PO PRN (23:33)
--- NOTE | 2021-08-25 23:33 | NUR ---
VSS. ADMIN PRN TYLENOL FOR HEADACHE. ALL NEEDS MET. CALL LIGHT IS WITHIN REACH.
[2021-08-26] VITALS: BP 115/70
[2021-08-26 04:00] VITALS: BP 125/77
[2021-08-26] MEDS: NACL 0.9% 1,000 ML IV SCH (04:15)
--- NOTE | 2021-08-26 04:29 | NUR ---
VITAL SIGNS ARE WITHIN NORMAL LIMITS. ALL SAFETY MEASURES. CALL LIGHT IS WITHIN REACH
[2021-08-26 05:53] LABS: BASOPHILS % (AUTO) 0.4 % (0.0-2.0); EOSINOPHILS # (AUTO) 0.1 K/uL (0-0.4); HEMATOCRIT 26.2 % (36-52); HEMOGLOBIN 8.7 g/dL (12.0-18.0); LYMPHOCYTES # (AUTO) 1.8 K/uL (2.0-11.5); MEAN CORPUSCULAR HEMOGLOBIN 25 pg (27-31); MEAN CORPUSCULAR HGB CONC 33 g/dL (33-37); MEAN CORPUSCULAR VOLUME 76.4 fL (80-94); MONOCYTES # (AUTO) 0.9 K/uL (0.8-1.0); MONOCYTES % (AUTO) 11.4 % (1.7-9.3); NEUTROPHILS # (AUTO) 4.8 K/uL (1.8-7.7); NEUTROPHILS % (AUTO) 63.2 % (42.2-75.2); PLATELET COUNT (AUTO) 228 K/uL (140-450); RED BLOOD CELL COUNT(AUTO) 3.43 MIL/uL (4.20-6.10); RED CELL DISTRIBUTION WIDTH 16.5 % (11.6-13.7); WHITE BLOOD COUNT (AUTO) 7.7 K/uL (4.8-10.8)
[2021-08-26 06:04] LABS: MAGNESIUM 2.4 mg/dL (1.8-2.4); PHOSPHORUS 4.3 mg/dL (2.5-4.9)
[2021-08-26 06:44] LABS: ANION GAP 14.2 (8-16); CARBON DIOXIDE 23.2 mmol/L (21-32); POTASSIUM 4.4 mmol/L (3.5-5.1)
[2021-08-26 06:47] LABS: CREATININE 8.7 mg/dL (0.6-1.3)
--- NOTE | 2021-08-26 06:52 | NUR ---
PAGED DR MÉNDEZ FOR CRITICAL LAB CREA 8.7. WAITING FOR PAGE BACK.
--- NOTE | 2021-08-26 07:30 | NUR ---
GAVE BEDSIDE REPORT TO DAY RN. PT ENDORSED IN STABLE CONDITION.
--- NOTE | 2021-08-26 07:31 | NUR ---
RECEIVED PATIENT FROM STAFF MECHANICAL ENGINEER NURSE FOR CONTINUITY OF CARE. PATIENT IS A/A/O X4. RESPIRATORY EVEN AND UNLABORED, ON ROOM AIR, NO SIGN OF DISTRESS NOTED. SKIN WARM, DRY, NON DIAPHORETIC. IV ON LEFT HAND 22G, INTACT AND PATENT, IS INFUSING FLUID ORDER. MEDIPORT NOTED ON RIGHT UPPER CHEST. PATIENT DENIES ANY PAIN OR DISCOMFORT. ABLE TO MAKE NEED KNOWN. CALL LIGHT WITHIN REACH. WILL CONTINUE TO MONITOR.
[2021-08-26 08:00] VITALS: BP 102/67
[2021-08-26] MEDS: FAMOTIDINE 20 MG/2 ML VIAL IV SCH (09:07)
--- NOTE | 2021-08-26 09:07 | NUR ---
SCHEDULE MEDICATION GIVEN WITH EDUCATION, PATIENT VERBALIZED UNDERSTANDING. PATIENT TOLERATED WELL. NO SIGN OF DISTRESS NOTED. CALL LIGHT WITHIN REACH. WILL CONTINUE TO MONITOR.
--- NOTE | 2021-08-26 11:20 | NUR ---
PATIENT IS RESTING IN BED, NO SIGN OF DISTRESS NOTED. CALL LIGHT WITHIN REACH. WILL CONTINUE TO MONITOR.
[2021-08-26 12:00] VITALS: BP 115/60
--- NOTE | 2021-08-26 13:50 | NUR ---
INSERT NOYOLA CATHETER. PATIENT TOLERATED. CLEAR YELLOW URINE RETURN. URINE COLLECTED. CALL LIGHT WITHIN REACH. WILL CONTINUE TO MONITOR.
--- NOTE | 2021-08-26 15:45 | NUR ---
PATIENT IS RESTING IN BED, NO SIGN OF DISTRESS NOTED. AROUSABLE TO VOICE. CALL LIGHT WITHIN REACH. WILL CONTINUE TO MONITOR.
[2021-08-26 16:00] VITALS: BP 111/66
--- NOTE | 2021-08-26 16:37 | NUR ---
08/26/21 RD FOLLOW UP COMPLETED PLEASE REFER TO NUTRITION ASSESSMENT UNDER CARE ACTIVITY FOR ESTIMATED NUTRITIONAL NEEDS. 1. CONTINUE SOFT DIET TOLERATED 2. RECOMMEND ENSURE CLEAR TID PER RD PROTOCOL -WILL PROVIDE [address] AND [address] PR[address] DA[address]. [address] WILL F/U 2-3 DAYS; HIGH RISK DEDRICK [address] RD
[2021-08-26] MEDS: ONDANSETRON 4 MG/2 ML VIAL IVP PRN (18:05)
--- NOTE | 2021-08-26 18:05 | NUR ---
PATIENT COMPLAINS OF NAUSEA, PRN ZOFRAN GIVEN WITH EDUCATION. PATIENT VERBALIZED UNDERSTANDING. PATIENT TOLERATED WELL. NO SIGN OF DISTRESS NOTED. CALL LIGHT WITHIN REACH. WILL CONTINUE TO MONITOR.
--- NOTE | 2021-08-26 19:28 | NUR ---
ENDORSED PATIENT TO [employer] SUPERVISOR NURSE FOR CONTINUITY OF CARE. PATIENT IS STABLE.
[2021-08-26 19:38] LABS: APPEARANCE,URINE CLEAR (CLEAR); BILIRUBIN,URINE NEGATIVE (NEGATIVE); BLOOD, URINE NEGATIVE (NEGATIVE); COLOR,URINE YELLOW (YELLOW); LEUKOCYTE ESTERASE ,URINE NEGATIVE (NEGATIVE); NITRITE, URINE NEGATIVE (NEGATIVE); UGLUCOSE NEGATIVE (NEGATIVE)
[2021-08-26 19:39] LABS: EOSINOPHIL,URINE NONE SEEN
[2021-08-26 20:00] VITALS: BP 115/60
--- NOTE | 2021-08-26 21:00 | NUR ---
PATIENT ASKING FOR MEDIPORT TO BE REMOVED, SAID NO AND SAID HES COMING TOMORROW TO TALK TO THE PT
[2021-08-27] VITALS: BP 109/76
--- NOTE | 2021-08-27 | NUR ---
PT SLEEPING ,ALL SAFETY MEASURES IN PLACE,BREATHING EVEN AND UNLABORED,NO DISTRESS NOTED
--- NOTE | 2021-08-27 03:00 | NUR ---
PATIENT ASLEEP ,BREATHING EVEN AND UNLABORED,CALL LIGHTS WITHIN REACH
[2021-08-27 04:00] VITALS: BP 118/68
--- NOTE | 2021-08-27 06:00 | NUR ---
PATIENT AWAKE ,VS STABLE ,URINE OUTPUT 1000CC,CLEAR,NO NDISTRESS NOTEDS
[2021-08-27 06:40] LABS: BASOPHILS % (AUTO) 0.6 % (0.0-2.0); EOSINOPHILS # (AUTO) 0.1 K/uL (0-0.4); EOSINOPHILS % (AUTO) 1.2 % (0.0-4.0); HEMATOCRIT 25.3 % (36-52); HEMOGLOBIN 8.2 g/dL (12.0-18.0); LYMPHOCYTES # (AUTO) 1.8 K/uL (2.0-11.5); MEAN CORPUSCULAR HEMOGLOBIN 25 pg (27-31); MEAN CORPUSCULAR HGB CONC 33 g/dL (33-37); MEAN CORPUSCULAR VOLUME 77.3 fL (80-94); MONOCYTES # (AUTO) 0.9 K/uL (0.8-1.0); MONOCYTES % (AUTO) 11.4 % (1.7-9.3); NEUTROPHILS # (AUTO) 4.7 K/uL (1.8-7.7); NEUTROPHILS % (AUTO) 62.8 % (42.2-75.2); PLATELET COUNT (AUTO) 244 K/uL (140-450); RED BLOOD CELL COUNT(AUTO) 3.27 MIL/uL (4.20-6.10); RED CELL DISTRIBUTION WIDTH 16.7 % (11.6-13.7); WHITE BLOOD COUNT (AUTO) 7.5 K/uL (4.8-10.8)
[2021-08-27 06:50] LABS: MAGNESIUM 2.4 mg/dL (1.8-2.4)
[2021-08-27 08:00] VITALS: BP 107/58
[2021-08-27] MEDS: FAMOTIDINE 20 MG/2 ML VIAL IV SCH (08:17)
[2021-08-27 12:00] VITALS: BP 118/71
--- NOTE | 2021-08-27 13:00 | NUR ---
REMOVED ORTEGA NEEDLE FROM RIGHT UPPER CHEST MEDIPORT PER PHYSICIAN ORDER. SITE COVERED WITH GAUZE AND TAPE. PT REFUSED TRANSPARENT DRESSING D/T AREA SENSITIVE AND RED. PT TOLERATED PROCEDURE WELL. NEEDLE INTACT.
[2021-08-27 16:00] VITALS: BP 115/78
[2021-08-27] MEDS: ONDANSETRON 4 MG/2 ML VIAL IVP PRN (19:50)
--- NOTE | 2021-08-27 19:50 | NUR ---
PATIENT COMPLAINED OF NAUSEA, ZOFRAN IVP PRN ADMINISTERED.
[2021-08-27 20:00] VITALS: BP 131/82
[2021-08-28] VITALS: BP 116/67
--- NOTE | 2021-08-28 00:35 | NUR ---
PATIENT IS SLEEPING. NO ACUTE DISTRESS. CALL LIGHT WITHIN REACH. SAFETY MEASURES IN PLACE.
[2021-08-28 04:00] VITALS: BP 111/60
[2021-08-28 06:06] LABS: BASOPHILS # (AUTO) 0.1 K/uL (0.00-0.22); BASOPHILS % (AUTO) 0.8 % (0.0-2.0); EOSINOPHILS # (AUTO) 0.1 K/uL (0-0.4); EOSINOPHILS % (AUTO) 0.8 % (0.0-4.0); HEMATOCRIT 25.3 % (36-52); HEMOGLOBIN 8.3 g/dL (12.0-18.0); LYMPHOCYTES # (AUTO) 1.7 K/uL (2.0-11.5); LYMPHOCYTES % (AUTO) 19.3 % (20.5-51.1); MEAN CORPUSCULAR HEMOGLOBIN 25 pg (27-31); MEAN CORPUSCULAR HGB CONC 33 g/dL (33-37); MEAN CORPUSCULAR VOLUME 76.9 fL (80-94); MONOCYTES # (AUTO) 0.9 K/uL (0.8-1.0); MONOCYTES % (AUTO) 10.7 % (1.7-9.3); NEUTROPHILS # (AUTO) 5.9 K/uL (1.8-7.7); NEUTROPHILS % (AUTO) 68.4 % (42.2-75.2); PLATELET COUNT (AUTO) 276 K/uL (140-450); RED BLOOD CELL COUNT(AUTO) 3.29 MIL/uL (4.20-6.10); RED CELL DISTRIBUTION WIDTH 16.3 % (11.6-13.7); WHITE BLOOD COUNT (AUTO) 8.6 K/uL (4.8-10.8)
[2021-08-28 06:25] LABS: MAGNESIUM 2.3 mg/dL (1.8-2.4); PHOSPHORUS 5.5 mg/dL (2.5-4.9)
--- NOTE | 2021-08-28 07:30 | NUR ---
RECEIVED PATIENT FROM [employer]TER DISPATCHER NURSE FOR CONTINUITY OF CARE. PATIENT IS A/A/O X4, ABLE TO MAKE NEED KNOWN. RESPIRATORY EVEN AND UNLABORED, ON ROOM AIR, NO SIGN OF DISTRESS NOTED. SKIN WARM, DRY, NON DIAPHORETIC. IV ON LEFT HAND 22G, INTACT AND PATENT. INFUSING FLUIDS ORDER. MEDIPORT NOTED ON RIGHT UPPER CHEST. PATIENT DENIES ANY PAIN OR DISCOMFORT. PLAN OF CARE DISCUSSED. CALL LIGHT WITHIN REACH. WILL CONTINUE TO MONITOR.
--- NOTE | 2021-08-28 07:33 | NUR ---
ENDORSED PATIENT GIVEN TO AM RN FOR CONTINUITY OF CARE. PATIENT IN STABLE CONDITION.
[2021-08-28 08:00] VITALS: BP 117/69
[2021-08-28] MEDS: FAMOTIDINE 20 MG/2 ML VIAL IV SCH (08:16)
--- NOTE | 2021-08-28 09:00 | NUR ---
ALL SCHEDULED MEDS GIVEN. PT IS STABLE. NO DISTRESS NOTED. WILL CONTINUE TO MONITOR.
[2021-08-28 09:40] LABS: ALBUMIN 2.4 g/dL (3.4-5.0); ANION GAP 13.7 (8-16); CARBON DIOXIDE 22.9 mmol/L (21-32); POTASSIUM 4.6 mmol/L (3.5-5.1); TOTAL BILIRUBIN 0.3 mg/dL (0.0-1.0)
[2021-08-28 09:46] LABS: CREATININE 9.6 mg/dL (0.6-1.3)
--- NOTE | 2021-08-28 11:30 | NUR ---
CHECKED ON PATIENT. PT IS STABLE. NO DISTRESS NOTED. WILL CONTINUE TO MONITOR.
[2021-08-28 12:00] VITALS: BP 109/67
--- NOTE | 2021-08-28 14:45 | NUR ---
CHECKED ON PATIENT. PT IS STABLE. NO DISTRESS NOTED. WILL CONTINUE TO MONITOR.
[2021-08-28 16:00] VITALS: BP 119/74
--- NOTE | 2021-08-28 17:40 | NUR ---
OBTAINED BLOOD CX FROM [facility].
--- NOTE | 2021-08-28 19:15 | NUR ---
ENDORSED TO ENVIRONMENTAL REMEDIATION CONSULTANT NURSE FOR CONTINUITY OF CARE. PT IS STABLE.
--- NOTE | 2021-08-28 19:20 | NUR ---
RECOLLECTED BLOOD CX Addendum: 08/28/21 at 1944 by Slade Fisher RN RN LAB NEEDED TWO SETS OF BLOOD CULTURES
[2021-08-28 20:00] VITALS: BP 111/65
[2021-08-29] VITALS: BP 110/70
--- NOTE | 2021-08-29 | NUR ---
ROUNDS , NO S/SX OF ACUTE DISTRESS NOTED AT THIS TIME , CALL LIGHT WITHIN REACH .
[2021-08-29 04:00] VITALS: BP 111/69
--- NOTE | 2021-08-29 04:00 | NUR ---
ROUNDS , NO COMPLAIN MADE . CALL LIGHT WITHIN REACH .
[2021-08-29 05:22] LABS: BASOPHILS % (AUTO) 0.3 % (0.0-2.0); EOSINOPHILS # (AUTO) 0.1 K/uL (0-0.4); EOSINOPHILS % (AUTO) 0.5 % (0.0-4.0); HEMATOCRIT 24.5 % (36-52); HEMOGLOBIN 7.9 g/dL (12.0-18.0); LYMPHOCYTES # (AUTO) 1.2 K/uL (2.0-11.5); LYMPHOCYTES % (AUTO) 13.4 % (20.5-51.1); MEAN CORPUSCULAR HEMOGLOBIN 25 pg (27-31); MEAN CORPUSCULAR HGB CONC 33 g/dL (33-37); MEAN CORPUSCULAR VOLUME 76.7 fL (80-94); MONOCYTES # (AUTO) 0.7 K/uL (0.8-1.0); MONOCYTES % (AUTO) 7.4 % (1.7-9.3); NEUTROPHILS # (AUTO) 7.3 K/uL (1.8-7.7); NEUTROPHILS % (AUTO) 78.4 % (42.2-75.2); PLATELET COUNT (AUTO) 295 K/uL (140-450); RED BLOOD CELL COUNT(AUTO) 3.19 MIL/uL (4.20-6.10); RED CELL DISTRIBUTION WIDTH 16.6 % (11.6-13.7); WHITE BLOOD COUNT (AUTO) 9.3 K/uL (4.8-10.8)
[2021-08-29 05:38] LABS: MAGNESIUM 2.1 mg/dL (1.8-2.4); PHOSPHORUS 5.5 mg/dL (2.5-4.9)
[2021-08-29 05:39] LABS: ANION GAP 15.5 (8-16); CARBON DIOXIDE 21.9 mmol/L (21-32); POTASSIUM 4.4 mmol/L (3.5-5.1)
--- NOTE | 2021-08-29 06:00 | NUR ---
CREA 8.6 TRENDING DOWN - RELAYED TO DR. JACOBO - WAITING FURTHER ORDER - WILL ENDORSE .
[2021-08-29 06:01] LABS: CREATININE 8.6 mg/dL (0.6-1.3)
--- NOTE | 2021-08-29 07:30 | NUR ---
ENDORSED - PT -STABLE .
--- NOTE | 2021-08-29 07:30 | NUR ---
RECEIVED REPORT FROM PROGRAM MANAGEMENT ANALYST NURSE FOR CONTINUITY OF CARE. PATIENT AWAKE NO DISTRESS AND VERBALLY RESPONSIVE.
[2021-08-29 08:00] VITALS: BP 119/70
--- NOTE | 2021-08-29 08:00 | NUR ---
Patient's Plan of Care was discussed and reviewed with FEMI LOPEZ
--- NOTE | 2021-08-29 08:36 | NUR ---
I WAS TOLD THE LEAD WAS OFF WHEN I GO TO THE ROOM WORKERS' COMPENSATION MAGISTRATE IS THEIR AND NOTED RESIDENT NOT BREATHING RIGHT WE PUT BACK TO BED HEAD OF BED ELEVATED AND CALLED RT. PATIENT ONLY OPEN HER EYES WHEN CALLED. RT ADJUSTED O2 AND PUT NEW O2 SAT ON RIGHT EAR LOBE. SATURATION AT THIS TIME 100% AT 25% HYFLO. Addendum: 08/29/21 at 0851 by Kortney Bo LVN WRONG PT
--- NOTE | 2021-08-29 08:43 | NUR ---
DR. WALTON AT BED SIDE WITH RT ORDER ABG AND CT WITH OUT CONTRAST. Addendum: 08/29/21 at 0850 by Kortney Bo LVN WRONG PT.
--- NOTE | 2021-08-29 09:30 | NUR ---
PT ON BED RESTING NO DISTRESS NOTED.
[2021-08-29] MEDS: FAMOTIDINE 20 MG/2 ML VIAL IV SCH (09:38)
--- NOTE | 2021-08-29 09:38 | NUR ---
RN GAVE IVP MEDICATION TOLERATED WELL.
--- NOTE | 2021-08-29 10:43 | NUR ---
PT ON BED REQUESTED FOR ICE CHIP REQUEST GRANTED. DENIES PAIN OR ANY DISCOMFFORT AT THIS TIME. CALL LIGHT WITH IN EASY REACH.
[2021-08-29 12:00] VITALS: BP 112/68
--- NOTE | 2021-08-29 13:00 | NUR ---
PATIENT ON BED NO DISTRESS NOTED. PATIENT DIDN'T EAT HER LUNCH STATED MY MOM GOING TO BRING ME CHICKEN SOUP. CALL LIGHT WITH IN EASY REACH.
[2021-08-29] MEDS: NACL 0.45% 1,000 ML IV SCH (13:13)
--- NOTE | 2021-08-29 14:48 | NUR ---
08/29/21 RD FOLLOW UP COMPLETED PLEASE REFER TO NUTRITION ASSESSMENT UNDER CARE ACTIVITY FOR ESTIMATED NUTRITIONAL NEEDS. 1. CONTINUE SOFT DIET TOLERATED -RECOMMEND RENAL DIET IF PT PO INTAKE IMPROVES 2. CONTINUE ENSURE CLEAR TID PER RD PROTOCOL -WILL PROVIDE [address] KCAL AND [address] WILL F/U 3-5 DAYS; MODERATE RISK DEDRICK LAU RD
--- NOTE | 2021-08-29 15:34 | NUR ---
PT ON BED WITH IV RUNNING AT 75 CC/HOUR TOLERATED WELL.
[2021-08-29 16:00] VITALS: BP 119/77
--- NOTE | 2021-08-29 16:09 | NUR ---
PATIENT CALLED TO EMPTY NOYOLA BAG OBTAIN 1300 CC OF YELLOW CLEAR URINE. DENIES PAIN OR ANY DISCOMFORT.
--- NOTE | 2021-08-29 16:44 | NUR ---
DR. WAGGONER AT BED SIDE NO NEW ORDER AT THIS TIME
--- NOTE | 2021-08-29 17:55 | NUR ---
RN GAVE IV ROCEPHINE NO ADVERSE REACTION NOTED.
--- NOTE | 2021-08-29 19:29 | NUR ---
GAVE REPORT TO EDUCATION PROFESSOR NURSE FOR CONTINUITY OF CARE.
[2021-08-29] MEDS: ONDANSETRON 4 MG/2 ML VIAL IVP PRN (19:51)
[2021-08-29 20:00] VITALS: BP 112/64
[2021-08-30] VITALS: BP 101/57
[2021-08-30] MEDS: NACL 0.45% 1,000 ML IV SCH ×2 (03:00→15:40)
[2021-08-30 04:00] VITALS: BP 102/56
[2021-08-30 05:50] LABS: ANION GAP 13.9 (8-16); CARBON DIOXIDE 24.5 mmol/L (21-32); POTASSIUM 4.4 mmol/L (3.5-5.1)
[2021-08-30 06:01] LABS: CREATININE 7.2 mg/dL (0.6-1.3)
--- NOTE | 2021-08-30 07:10 | NUR ---
RECEIVED REPORT FROM CARBURETOR REBUILDER NURSE FOR CONTINUITY OF CARE.
[2021-08-30 08:00] VITALS: BP 121/76
--- NOTE | 2021-08-30 08:00 | NUR ---
Patient's Plan of Care was discussed and reviewed with FEMI LOPEZ
[2021-08-30] MEDS: FAMOTIDINE 20 MG/2 ML VIAL IV SCH (09:46)
[2021-08-30 12:00] VITALS: BP 123/74
--- NOTE | 2021-08-30 12:38 | NUR ---
DR. GUSTAFSON CABLE WORKER HELPER SEEN PATIENT AND STATED THAT ITS OKAY FOR HIM TO DISCHARGE PATIENT IF DR. MORGAN WILL ORDER IT AND HE WILL SEE PATIENT ON HIS OFFICE IN 2 WEEKS. AND SAID OKAY TO DISCONTINUE NOYOLA CATHETER.
--- NOTE | 2021-08-30 12:49 | NUR ---
NOYOLA CATHETER REMOVED TOLERATED WELL NO BLEEDING NOTED. ENCOURAGED TO INCREASE FLUID TOLERATED.
[2021-08-30] MEDS ORDERED: CEPH-588 PO (14:47)
[2021-08-30 15:15] VITALS: BP 123/74
--- NOTE | 2021-08-30 16:45 | NUR ---
PATIENT ALERT ORIENTED ABLE TO RESPONDS VERBALLY. NO DISTRESS NOTED. GIVEN DISCHARGE PACKET WITH INSTRUCTION VERBALIZED UNDERSTANDING. REMOVED IV WITH CATHETER INTACT. REMOVED NAMED BAND. WHEELED PATIENT TO THEIR PRIVATE VEHICLE WITH ALL HER BELONGINGS.
== END 2021-08-30 16:45 | disposition home or self-care (01) | DRG 721 ==
LOC: MED 20:52 → EDSEX 08-20 04:54 → MIC 08-20 04:54 → MMU 08-23 09:21
PROVIDERS: ADMIT Internal Medicine; ATTEND Internal Medicine
DX: T80.211A Bloodstream infection due to central venous catheter, initial encounter (principal); R65.21 Severe sepsis with septic shock; A41.59 Other Gram-negative sepsis; N17.9 Acute kidney failure, unspecified; E43 Unspecified severe protein-calorie malnutrition; D50.9 Iron deficiency anemia, unspecified; Z20.822 Contact with and (suspected) exposure to COVID-19; Y83.8 Other surgical procedures as the cause of abnormal reaction of the patient, or of later complication, without mention of misadventure at the time of the procedure; Z85.028 Personal history of other malignant neoplasm of stomach; Z68.23 Body mass index [BMI] 23.0-23.9, adult; Y92.89 Other specified places as the place of occurrence of the external cause
CPT/HCPCS: 36415; 71045; 74150; 76770; 80048; 80053; 80076; 80202; 81001; 81003; 82570; 82728; 82948; 83540; 83605; 83690; 83735; 84100; 84300; 84484; 85025; 87040; 87081; 87086; 87205; 93005; 93970; 96361; 96365; 96367; 99291; J0696; J1650; J1956; J2185; J2405; J2543; J3370; J3475; J3490; J7060; Q0092; Q9967